=== PATIENT | female | born 1945 | race Caucasian/White ===

== ENCOUNTER → 2016-06-02 | Outpatient (CLI) | payer OTHER | LOC: NUC 05:23 | DX: M85.80 Other specified disorders of bone density and structure, unspecified site (principal); N95.9 Unspecified menopausal and perimenopausal disorder ==

== ENCOUNTER → 2016-12-03 | Outpatient (CLI) | payer OTHER | LOC: RAD 02:43 | DX: Z12.31 Encounter for screening mammogram for malignant neoplasm of breast (principal) ==

== ENCOUNTER → 2017-12-07 | Outpatient (CLI) | payer OTHER | LOC: RAD 01:53 | DX: Z12.31 Encounter for screening mammogram for malignant neoplasm of breast (principal) ==

== ENCOUNTER → 2018-07-05 | Outpatient (CLI) | payer OTHER | LOC: NUC 06-30 15:40 | DX: M85.89 Other specified disorders of bone density and structure, multiple sites (principal); Z78.0 Asymptomatic menopausal state ==

== ENCOUNTER → 2019-01-13 | Outpatient (CLI) | payer OTHER | LOC: RAD 02:40 | DX: Z12.31 Encounter for screening mammogram for malignant neoplasm of breast (principal) ==

== ENCOUNTER → 2020-02-06 | Outpatient (CLI) | payer OTHER | LOC: RAD 09:02 | PROVIDERS: ATTEND Neuromusculoskeletal Medicine & OMM | DX: Z12.31 Encounter for screening mammogram for malignant neoplasm of breast (principal) ==

== ENCOUNTER → 2021-02-18 | Outpatient (CLI) | payer OTHER | LOC: BC 02-07 12:55 | PROVIDERS: ATTEND Neuromusculoskeletal Medicine & OMM | DX: Z12.31 Encounter for screening mammogram for malignant neoplasm of breast (principal) ==